=== PATIENT | female | born 1960 | race American Indian/Alaskan Native ===

== ENCOUNTER 2021-05-09 08:51 | Outpatient (CLI) | payer OTHER ==
--- NOTE | 2021-05-12 09:33 | Mammography Report ---
DIGITAL DIAGNOSTIC MAMMOGRAM WITH CAD WITH TOMOSYNTHESIS, 05/09/2021 CLINICAL INFORMATION / INDICATION: MASTODYNIA TECHNIQUE: Digital left mammographic imaging was performed. This examination was interpreted with the benefit of Computer-aided Detection analysis. COMPARISON: 03/14/2019 from [facility] radiology associates FINDINGS: Breast Density: There are scattered areas of fibroglandular density. No dominant mass, suspicious calcifications or architectural distortion in the left breast. IMPRESSION: No mammographic evidence of malignancy. Follow up recommendation: Clinical exam with regards to the patient complaint of left breast pain. Th e patient should continue yearly screening mammography. BI-RADS Category 1: Negative. A "normal" or negative report should not discourage follow up or biopsy of a clinically significant f inding. A written summary of these findings will be mailed to the patient. The patient will be entered into a mammography reporting system which will generate a reminder letter for the patient's next appointmen t at the appropriate interval. According to the [employer], yearly mammograms are recommended starting at age 40 and continuing as long as a woman is in good health. Breast MRI is recommended for women with an karla roximately 20-25% or greater lifetime risk of breast cancer, including women with a strong family his tory of breast or ovarian cancer and women who have been treated for Hodgkin's disease. Signer Name: Jeffery Chairez MD Signed: 05/12/2021 9:28 AM Workstation Name: [email or web address]
== END 2021-05-09 08:52 | disposition home or self-care (01) ==
LOC: SPVWC 08:51
PROVIDERS: ATTEND Surgery
DX: N64.4 Mastodynia (principal)
CPT/HCPCS: 77065; G0279

== ENCOUNTER 2021-05-28 08:37 | Outpatient (CLI) | payer OTHER ==
--- NOTE | 2021-05-28 09:28 | Ultrasound Report ---
ULTRASOUND BREAST LEFT LIMITED, 05/28/2021 CLINICAL INFORMATION / INDICATION: Patient presents for evaluation of an area of focal pain in the le ft breast. TECHNIQUE: Targeted ultrasound evaluation was performed of the area of interest. COMPARISON: Left mammogram 05/09/2021 FINDINGS: Targeted ultrasound of the area of focal pain in the superior left breast reveals normal fibroglandul ar tissue. No suspicious cystic or solid lesion identified. IMPRESSION: 1. There is no sonographic abnormality to account for the area of focal pain in the left breast, ther efore clinical correlation is recommended. Follow up recommendation: Back to schedule. BI-RADS Category 1: Negative. A normal or "negative" report should not preclude biopsy or follow-up of a clinically suspicious find ing. Signer Name: Angela Camarena MD Signed: 05/28/2021 9:23 AM Workstation Name: [email or web address]
== END 2021-05-28 08:38 | disposition home or self-care (01) ==
LOC: SPVWC 08:37
PROVIDERS: ATTEND Surgery
DX: N64.4 Mastodynia (principal); R92.8 Other abnormal and inconclusive findings on diagnostic imaging of breast